=== PATIENT | male | born 1990 | race Two or more races ===

== ENCOUNTER 2023-08-31 16:14 | Emergency (ER) | payer MEDICAID, OTHER ==
[~2023-08-31] VITALS: Ht 177.8 cm; Wt 81.8 kg
[2023-08-31 17:25] VITALS: BP 127/79; PULSE 95; RESP 16; TEMP 96.9; O2SAT 96
[2023-08-31] MEDS ORDERED: METH-1182 PO (18:02)
== END 2023-08-31 18:21 | disposition home or self-care (01) ==
LOC: EDBD 16:14 → ER 16:14
DX: S29.011A Strain of muscle and tendon of front wall of thorax, initial encounter (principal); S29.012A Strain of muscle and tendon of back wall of thorax, initial encounter; V43.52XA Car driver injured in collision with other type car in traffic accident, initial encounter; Y93.89 Activity, other specified; Y92.488 Other paved roadways as the place of occurrence of the external cause; Y99.8 Other external cause status
CPT/HCPCS: 71046